=== PATIENT | female | born 2000 ===

== ENCOUNTER 2022-01-25 10:55 | Outpatient (REF) | payer BC, SELFPAY ==
--- NOTE | 2022-01-25 13:51 | MHC.AU.PEI ---
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 She reports she does not always understand what was said to her, particularly when there is background noise present or the speaker is talking quickly. Kaitlin also reports she often hears what people say, but she takes longer to process the verbal message. Reading comprehension is also of concern because she reads slower in order to fully understand the material read. Kaitlin notes she is doing very well academically; however, she has to work very diligently and longer than expected to comprehend. 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 Unable to use ear inserts today for testing Left Ear: Red and irritated esperanza. Canal is clear. Tympanometry: Tympanometry performed due to: To assess integrity of the middle ear system Right Ear: Normal Middle Ear System (Type A) Left Ear: Normal Middle Ear System (Type A) Otoacoustic Emissions Frequency Range Used: 1.6-8 kHz Right Ear Results: Present Emissions Analysis: Present emissions suggest normal cochlear function Rules out peripheral hearing loss greater than a mild degree Left Ear Results: Present 2089-7560 Hz. Absent 8000 Hz. Analysis: Present emissions suggest normal cochlear function Rules out peripheral hearing loss greater than a mild degree Absent emissions suggest cochlear dysfunction Hearing Evaluation: Method: Conventional Audiometry Transducer(s) Used: Circumaural Headphones Stimuli Used: Pure Tones Right Ear: Description of Hearing: Normal hearing thresholds 250-8000 Hz Left Ear: Description of Hearing: Normal hearing thresholds 250-8000 Hz. Compared to the right ear, left ear levels are 5-10 dB poorer at 6000 and 8000 Hz. Speech Recognition Theshold (SRT): Method Used: Monitored Live Voice Stimuli Used: Spondee Words Right Ear: 0 dB HL Left Ear: 0 dB HL Word Discrimination: Method: Recorded Lists Word Lists Used: NU-6 Right Ear: 100% at 50 dB HL Left Ear: 88% at 50 dB HL QuickSIN: Binaural Quick SIN Test: 2 dB SNR Loss. This score falls within the normal range suggesting Kaitlin does not experience any more difficulty understanding speech with increasing levels of background noise than expected in this controlled test environment when Kaitlin is fully concentrating on the listening task. Real world listening situations are likely to be much more difficult. 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 Although Kaitlin passed the Auditory Processing screening test, her intermittently prolonged response time and the fact she noticed more difficulty understanding stimuli in the left ear during the SCAN-3A, likely reflects an auditory processing weakness. In discussing auditory processing skills with Kaitlin, she has already developed strategies on her own which would have been recommended today. She is academically successful, but has to work very hard. We also discussed how emotional state also influences and reduces auditory processing skills even further. Recommendations: No further audiological action is needed at this time. A referral for a Neuropsychological evaluation may be considered to better assess if other cognitive functions may relate to her perceived auditory and reading difficulties. Advise use of custom musician's hearing protection. Diagnosis Code(s): Primary Diagnosis: Z01.11 Encounter for exam of ears/hearing with abnormal findings Secondary Diagnosis: H93.293 Abnormal Auditory Perception Services Performed: Pure Tone- Air (CPT 15735) Speech Audiometry Threshold, with Speech Recognition (CPT 83195) Diagnostic Otoacoustic Emissions (CPT 70396, 26+TC) Tympanometry (CPT 54629) Signature: Provider: Samantha Phillips, [facility]
--- NOTE | 2022-01-26 08:46 | MHC.AU.PEA ---
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 She reports she does not always understand what was said to her, particularly when there is background noise present or the speaker is talking quickly. Kaitlin also reports she often hears what people say, but she takes longer to process the verbal message. Reading comprehension is also of concern because she needs to read slower in order to fully understand the material read. Kaitlin notes she is doing very well academically; however, she has to work very diligently and longer than expected to comprehend. 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 Unable to use ear inserts today for testing as insert blocked by canal wall. Left Ear: Red and irritated esperanza. Canal is clear. Tympanometry: Tympanometry performed due to: To assess integrity of the middle ear system Right Ear: Normal Middle Ear System (Type A) Left Ear: Normal Middle Ear System (Type A) Otoacoustic Emissions Frequency Range Used: 1.6-8 kHz Right Ear Results: Present Emissions Analysis: Present emissions suggest normal cochlear function Rules out peripheral hearing loss greater than a mild degree Left Ear Results: Present 0026-9553 Hz. Absent 8000 Hz. Analysis: Present emissions suggest normal cochlear function Rules out peripheral hearing loss greater than a mild degree Reduced/Absent emissions suggest cochlear dysfunction Hearing Evaluation: Method: Conventional Audiometry Transducer(s) Used: Circumaural Headphones Stimuli Used: Pure Tones Right Ear Description of Hearing: Normal hearing thresholds 250-8000 Hz Left Ear Description of Hearing: Normal hearing thresholds 250-8000 Hz. Compared to the right ear, left ear levels are 5-10 dB poorer at 6000 and 8000 Hz. Speech Recognition Threshold (SRT): Method Used: Monitored Live Voice Stimuli Used: Spondee Words Right Ear: 0 dB HL Left Ear: 0 dB HL Word Discrimination: Method: Recorded Lists Word Lists Used: NU-6 Right Ear: 100% at 50 dB HL Left Ear: 88% at 50 dB HL (Central) Auditory Processing Screening SCAN-3 for Adolescents & Adults (SCAN-3:A): This is a screening test to determine if a individual is at risk for an Auditory Processing Disorder. The screening evaluates three areas of auditory processing skills and is scored by an age-appropriate Pass/Fail criterion. It is comprised of three parts: Gap Detection, Auditory Figure-Ground, and Competing Words-Free Recall. 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 Although Kaitlin passed the Auditory Processing screening test, her intermittently prolonged response time and the fact she noticed more difficulty understanding stimuli in the left ear during the SCAN-3A, likely reflects an auditory processing weakness. In discussing auditory processing skills with Kaitlin, she has already developed strategies on her own which would have been recommended today. She is academically successful, but has to work very hard. She is encouraged to continue using her strategies and a few ways to reduce the influence of background noise were discussed. 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 We also discussed how emotional state also influences and reduces auditory processing skills even further. Recommendations: No further audiological action is needed at this time. A referral for a Neuropsychological evaluation is recommended. Advise use of custom musician's hearing protection. Diagnosis Code(s): Primary Diagnosis: Z01.11 Encounter for exam of ears/hearing with abnormal findings Secondary Diagnosis: H93.293 Abnormal Auditory Perception Services Performed: Pure Tone- Air (CPT 09509) Speech Audiometry Threshold, with Speech Recognition (CPT 08133) Diagnostic Otoacoustic Emissions (CPT 10681, 26+TC) Tympanometry (CPT 72800) Signature: Provider: Samantha Phillips, [facility]
== END 2022-01-25 10:56 | disposition home or self-care (01) ==
LOC: HO.SH 10:55
PROVIDERS: Visit Provider Pediatrics
DX: Z01.118 Encounter for examination of ears and hearing with other abnormal findings (principal); H93.293 Other abnormal auditory perceptions, bilateral
CPT/HCPCS: 92552; 92556; 92567; 92588